=== PATIENT | female | born 1950 | race Caucasian/White ===

== ENCOUNTER → 2018-06-14 | Outpatient (CLI) | payer MEDICARE ==
[~2018-06-14] MED LIST: AEC81 PO; ALEN70TA2 PO; AMLO10TA4 PO; CA C1TAB95 PO; CYAN250T PO; DULO30CA2 PO; FERR159T2 PO; HYDR25TA PO; INSLAN SQ; LISI-613 PO; LORA10TA7 PO; META800T72 PO; MULTIVITAMIN PO; MV-M1TAB20 PO; OMEG-53 PO; SIMV10TA6 PO; SITA1TAB6 PO; TEMA15CA PO; TUMERIC CURCUMIN PO; UBID50TA3 PO; VITAMIN E PO
== END | disposition home or self-care (01) ==
LOC: RAH 12:58
PROVIDERS: ATTEND Internal Medicine Medical Oncology
DX: Z12.31 Encounter for screening mammogram for malignant neoplasm of breast (principal); E11.9 Type 2 diabetes mellitus without complications; I10 Essential (primary) hypertension; E78.5 Hyperlipidemia, unspecified; M19.90 Unspecified osteoarthritis, unspecified site
CPT/HCPCS: 77067

== ENCOUNTER → 2019-06-17 | Outpatient (CLI) | payer MEDICARE | END | disposition home or self-care (01) | LOC: RAH 09:29 | PROVIDERS: ATTEND Internal Medicine Medical Oncology | DX: Z12.31 Encounter for screening mammogram for malignant neoplasm of breast (principal) | CPT/HCPCS: 77067 ==

== ENCOUNTER → 2020-07-02 | Outpatient (CLI) | payer MEDICARE ==
[~2020-07-02] MED LIST changes: -SIMV10TA6 PO; +SIMV10TA97 PO
== END | disposition home or self-care (01) ==
LOC: RAH 10:37
PROVIDERS: ATTEND Internal Medicine Medical Oncology
DX: Z12.31 Encounter for screening mammogram for malignant neoplasm of breast (principal)
CPT/HCPCS: 77067

== ENCOUNTER → 2021-07-15 | Outpatient (CLI) | payer MEDICARE ==
[~2021-07-15] MED LIST changes: -LISI-613 PO; +LISI20TA24 PO
== END | disposition home or self-care (01) ==
LOC: RAH 10:08
PROVIDERS: ATTEND Internal Medicine Medical Oncology
DX: Z12.31 Encounter for screening mammogram for malignant neoplasm of breast (principal)
CPT/HCPCS: 77067

== ENCOUNTER → 2022-09-10 | Outpatient (CLI) | payer MEDICARE ==
[~2022-09-10] MED LIST changes: -ALEN70TA2 PO; +ALEN70TA85 PO
== END | disposition home or self-care (01) ==
LOC: RAH 12:10
PROVIDERS: ATTEND Family Medicine
DX: Z12.31 Encounter for screening mammogram for malignant neoplasm of breast (principal)
CPT/HCPCS: 77067

== ENCOUNTER → 2023-10-02 | Outpatient (CLI) | payer OTHER, MEDICARE | END | disposition home or self-care (01) | LOC: RAH 09:57 | PROVIDERS: ATTEND Family Medicine | DX: Z12.31 Encounter for screening mammogram for malignant neoplasm of breast (principal) | CPT/HCPCS: 77067 ==